=== PATIENT | male | born 1985 | race Caucasian/White ===

== ENCOUNTER 2023-10-14 02:48 | Inpatient (IN) | payer BC, SELFPAY ==
[2023-10-13 21:59] VITALS: BP 190/118
[2023-10-13 22:21] LABS: % Basophils 0.7 % (0-2); % Eosinophils 1.7 % (0-6); % Immature Granulocytes 0.4 % (0-0.5); % Lymphocytes 16.1 % (20.5-51.1); % Monocytes 9.9 % (1.7-9.3); % Neutrophils 71.2 % (42.2-75.2); Absolute Basophils 0.1 10^3/uL (0-0.2); Absolute Eosinophils 0.2 10^3/uL (0-0.7); Absolute Immature Granulocytes 0.1 10^3/uL (0-0.05); Absolute Lymphocytes 1.8 10^3/uL (1.2-3.4); Absolute Monocytes 1.1 10^3/uL (0.1-0.6); Absolute Neutrophils 8.1 10^3/uL (1.4-6.5); Hematocrit 47.1 % (39.0-52.0); Hemoglobin 16.9 g/dL (13.0-18.0); Mean Corp Hgb Conc. 35.9 g/dL (33.0-37.0); Mean Corpuscular Hgb 30.7 pg (27.0-31.0); Mean Corpuscular Volume 85.6 fL (80.0-94.0); Mean Platelet Volume 10.8 fL (7.4-10.4); Nucleated Red Blood Cells % 0 % (-); Platelet Count 229 10^3/uL (130-400); Red Cell Dist. Width 12.6 % (11.5-14.5); White Blood Cell Count 11.3 10^3/uL (4.8-10.8)
[2023-10-13 22:34] LABS: ALT (SGPT) 187 U/L (0-50); AST (SGOT) 158 U/L (17-59); Albumin 5.2 g/dl (3.5-5.0); Alkaline Phosphatase 78 U/L (38-126); Blood Urea Nitrogen 15 mg/dl (9-20); Calcium 10.5 mg/dl (8.4-10.2); Carbon Dioxide 28 mmol/L (22-30); Chloride 102 mmol/L (98-107); Glucose 113 mg/dl (70-99); Lipase 175 U/L (23-300); Sodium 139 mmol/L (135-145); Total Bilirubin 1.9 mg/dl (0.2-1.3); Total Protein 8.1 g/dl (6.3-8.2); eGFR > 60.00
[2023-10-13 22:41] LABS: Potassium 4.1 mmol/L (3.5-5.1)
[2023-10-13 22:45] LABS: Troponin I < 0.012 ng/ml
--- NOTE | 2023-10-13 23:52 | EDRN ---
the pain was all over abd. Pt had dry heaves for the last 3 hours after he vomited. Pt c/o dizziness.
[2023-10-13 23:58] VITALS: BMI 47.1
[2023-10-14] VITALS (16 sets, daily range): BP systolic 112–148; BP diastolic 68–88; BMI 46.6
--- NOTE | 2023-10-14 00:10 | ED.GENMED ---
History of Present Illness
General
Chief Complaint: Abdominal Pain
Source: patient
Exam Limitations: none
Time Seen by Provider: 10/13/23 23:46
History of Present Illness
History of Present Illness:
This is a 38 year old male that comes in with c/o upper abd pain. States that he thought this was heart burn and he tried Prilosec, Pepto and 2 Pepcid. States that his pain continued for the past 5 hours and it hurts when she breaths. States that it
felt like someone was stabbing him in his chest and stomach. States that he had dry heaves for the past 1/2 hour to 45 min. States that he was sweaty, nauseated and vomited. States that he was a little lightheaded. Patient was also due to his Third
Wegovy injection tomorrow. Denies any fever, chills, chest pain, diarrhea, headache, urinary burning.
Past History
Past History
ED Past Medical History: Asthma, GERD and Other (Renal calculus, ADHD); Negative HTN, Hypercholesterolemia or NIDDM
ED Past Surgical History: Orthopedic (Right knee surgery)
Social History
Tobacco: Non-smoker
Alcohol: Occasional
Personal:
Living: alone
Review of Systems
Review of Systems
All Other Systems: ROS reviewed and negative except as documented in HPI and ROS
Constitutional: Reports other (Sweating); Denies fever or chills
EENT: Reports no symptoms
Respiratory: Reports trouble breathing (Hurts with breathing)
Cardiac: Denies chest pain
ABD/GI: Reports abdominal pain, nausea and vomiting; Denies diarrhea
: Reports no symptoms; Denies dysuria, frequency or urgency
Musculoskeletal: Reports no symptoms
Skin: Reports no symptoms
Neurological: Reports other (Lightheaded); Denies dizzy or headache
Psychiatric: Reports no symptoms
Phy Exam
General Physical Exam
General Presentation: no apparent distress
General age: appears stated age
General Skin: warm and dry
General Habitus: obese
General Mental: alert
General Hydration: dry mucous membranes
ENT Exam
ENT Exam: TM's normal, pharynx normal and neck supple
Eye Exam
Eye Exam: EOMI
Cardiovascular Exam
Cardiovascular Exam: regular rate/rhythm and normal peripheral pulses
Pulmonary Exam
Pulmonary Exam: lungs clear, no respiratory distress, no rales, chest non tender, no crackles, no rhonchi, no wheezing and no cough
Gastrointestinal Exam
Gastrointestinal Exam: normal bowel sounds, soft, no organomegaly, no pulsatile mass, non distended, tender (Epigastric and RUQ tenderness with palpation) and other (Obese)
Musculoskeletal Exam
Musculoskeletal Exam: full ROM
Skin Exam
Skin Exam: normal color, warm/dry, no rash and no petechia
Psychiatric Exam
Psychiatric Exam: normal mood/affect
Course
Orders/Labs/Results
Orders:
Orders
10/13/23 21:52
Electrocardiogram (*1) Urgent
Reason for Study: Chest Pain
EKG- Treatment ONCE
10/13/23 22:03
Urinalysis Urgent
Date Specimen was Collected: 10/13/23
Time Specimen was Collected: 22:03
10/13/23 22:11
CMP [Comprehensive Metabolic Panel] Urgent
Complete Blood Count/With Diff Urgent
Direct Bilirubin Urgent
Comment: ADD ON
Lipase Urgent
Troponin I Urgent
10/13/23 23:58
Sucralfate Suspension [Carafate Suspension] 1 gm PO NOW STA
US Abdomen Complete/Upper Urgent
Comment:
Reason For Exam: Upper abd pain. Elevated liver enzymes.
10/14/23 00:15
0.9% Sodium Chloride 1000 ml [Nss] 1,000 ml IV BOLUS
10/14/23 01:10
D-Dimer Urgent
10/14/23 01:33
Add On- LAB Urgent
Tests Added?: Direct jessika
10/14/23 02:21
HYDROmorphone [Dilaudid] 1 mg IV NOW STA
Abnormal Lab Results
10/13/23 10/14/23
22:11 01:50
WBC 11.3 H 10^3/uL
(4.8-10.8)
MPV 10.8 H fL
(7.4-10.4)
Abs Immat Gran (auto) 0.1 H 10^3/uL
(0-0.05)
Absolute Neuts (auto) 8.1 H 10^3/uL
(1.4-6.5)
Absolute Monos (auto) 1.1 H 10^3/uL
(0.1-0.6)
Lymphocytes % 16.1 L %
(20.5-51.1)
Monocytes % 9.9 H %
(1.7-9.3)
Glucose 113 H mg/dl
(70-99)
Calcium 10.5 H mg/dl
(8.4-10.2)
Total Bilirubin 1.9 H mg/dl
(0.2-1.3)
Direct Bilirubin 1.1 H mg/dl
(0.0-0.4)
AST 158 H U/L
(17-59)
ALT 187 H U/L
(0-50)
Albumin 5.2 H g/dl
(3.5-5.0)
Urine Ketones 3+ A
(Negative)
10/13/23 22:11
10/13/23 22:11
WBC very slightly elevated. Glucose nonfasting. Calcium slightly elevated. Total jessika elevation. AST/ALT elevation. (last AST was 50 and ALT 90 according to patient), Troponin <0.012, Lipase normal at 175,. Direct jessika elevated at 1.1, Urine negative
for infection. D-dimer 0.37
Vital Signs
Initial and Last Documented VS:
Initial Vital Signs
Temp Pulse Resp BP Pulse Ox
98.3 F 80 22 190/118 97
10/13/23 21:59 10/13/23 21:59 10/13/23 21:59 10/13/23 21:59 10/13/23 21:59
Last Documented Vital Signs
Temp Pulse Resp BP Pulse Ox
98.3 F 84 16 144/88 96
10/13/23 21:59 10/14/23 00:00 10/14/23 00:00 10/14/23 00:01 10/14/23 00:00
MDM/Problems Addressed
Differential Diagnosis Includes:
Gastritis, Gallbladder disease,
MDM/Problems Addressed:
This is a 38 year old male that comes in with c/o upper abd pain. States that it felt like heart but over the past 5 hours the pain has gotten worse.
Will get labs and US. Medicate for pain.
Back into see patient. Explained that his liver enzymes are elevated and that his US shows that he has gallstones. It is hard to exclude an impacted stone. There is mild gallbladder wall thickening. Patient states that at this time his pain is
coming back. Will admit patient for further evaluation. Hospitalist notified.
Chronic conditions affecting care:
Obese
Acute Exacerbation and/or Progression of Chronic Illness:
Obese
*Radiology
Radiology exam reviewed: radiology read reviewed (US night hawk-Body habitus decreases characterization. Sludge and nonmobile gallstones which may be related to the sludge however difficult to exclude impacted stone. Mild gallbladder wall thickening
at 4.3mm. No sonographic Jenny's sign (but the patient received pain medication). No pericholecystic), all reviewed NAD by ED Provider (US cont- fluid or other signs of chohlecystitis. Common bile duct is unremarkable. Constellation findings are non
specific for acute cholecystitis, consider further workup or followup ultrasound especially if symptoms persist or progress. Mild fatty liver. Kidneys are possibly slightly heterogeneous) and other (US con-/Hyperechoic however, may be technical
related to body habitus, no stones or obstrucation. Please correlate with urinalysis. Remainder of the visualized upper abd is unremarkable. )
*Pulse Oximetry
Patient hypoxic: no
*EKG
Interpreted by ED Provider?: Yes
Heart Rate: 87
Rate: normal
Rhythm: sinus
[place]: normal axis
Interval: normal interval
QRS Pattern: normal QRS
Ischemia: no ischemia
*Blend Plant Operator Interpretation
Rate: normal
Heart Rate: 83
Rhythm: sinus
*Critical Care Note
Total Time (30-74mins, 75-104mins- exclusive of procedures): Not Applicable
ED Attending Note
-
Portions of this chart may have been created with voice recognition software.� Occasional wrong word or��sound alike� substitutions may have occurred due to the inherent limitations of voice recognition software.
Discharge Plan
Departure
Patient Disposition: Admit
Date of Disposition: 10/14/23
Time of Disposition: 02:25
Admit to: Med/Surg
Presentation/result/management discussed w/ accepting MD/DO: Hospitalist
Patient with high blood pressure during this ER visit?: Yes
Condition: Good
Covid-19: Not Applicable
Discharge Problem:
Acute upper abdominal pain, Elevated liver enzymes
Prescriptions:
No Action
multivitamin Tablet
1 tab PO DAILY
Zyrtec
10 mg PO DAILY
meloxicam 7.5 mg Tablet
7.5 mg PO BID
Ozempic 0.25 mg or 0.5 mg(2 mg/1.5 mL) Pen Injector
0.25 mg SC QWEEK
Rx Instructions:
for 4 weeks
Interventions
Interventions:
*Risk Screen - Suicide Last Done: 10/13/23 21:59
*General Assessment Last Done: 10/13/23 23:49
*Neglect/Abuse Screening Last Done: 10/13/23 21:59
ED- Fall Risk Assessment Last Done: 10/13/23 23:49
*ED COVID-19 Vaccine History Last Done: 10/13/23 23:49
UR-Lsxppi-Actbrfyktz Assessment Last Done: 10/13/23 23:49
Discharge Date and Time
Print Language: CANADIAN
[2023-10-14] MEDS: CARAFATE SUSPENSION 1 GM PO (00:11)
[2023-10-14] MEDS: NSS 1000 IV ×4 (01:21→22:17)
[2023-10-14 02:07] LABS: Urine Albumin Negative (Neg - Trace); Urine Bilirubin Negative (Negative); Urine Character Clear (Clear); Urine Color Yellow; Urine Glucose Negative (Negative); Urine Ketone 3+ (Negative); Urine Leukocyte Negative (Negative); Urine Nitrite Negative (Negative); Urine Occult Blood Negative (Negative); Urine Urobilinogen Negative (Neg - 1+)
[2023-10-14 02:12] LABS: Direct Bilirubin 1.1 mg/dl (0.0-0.4)
[2023-10-14 02:22] LABS: D-Dimer 0.37 ug/mlFEU (0.00-0.50)
--- NOTE | 2023-10-14 02:31 | HPS.HSE ---
Family Physician
-
Family Physician: Umair Carrillo
Chief Complaint
-
Abd Pain
History of Present Illness
Patient is a 38y M with PMH significant for obesity and DM-II who presents to ED complaining of abdominal pain. Patient states that he developed epigastric abdominal pain around 4 PM this afternoon. He took Pepcid, Prilosec and Pepto Bismol at
home with no improvement in symptoms over several hours. He had N/V and ultimately dry heaves. Patient states that pain radiates to the back and he has 'aching' in the shoulders. Pain is worse with deep breathing. He states that he was pacing
around his house and was unable to get comfortable.
He denies any fevers / chills. No diarrhea.
Patient was recently started on Wegovy and has had 2 doses of the lowest dose thus far - 3rd dose is due tomorrow.
Patient reports history of similar episode 1 year ago. He as treated in the ED for GERD / heartburn and his symptoms improved.
He notes fairly frequent episodes of heartburn, but symptoms typically resolved with Pepcid.
Medical History
Past Medical History
Past Medical History: Reports Other
Additional Past Medical History:
DM-II
Obesity
Past Surgical History: Reports Other
Additional Past Surgical History:
Gynecomastia Surgery
Right Knee Surgery
Social History
Tobacco: Non-smoker
Alcohol: Occasional
Drug: None
Family History
Family History: Not pertinent
Allergies / Home Medications
Allergies reflects when Allergies were last updated in [employer].
Home Medications with original date entered in [employer]
Allergy/Medication List:
Allergies
Allergy/AdvReac Type Severity Reaction Status Date / Time
No Known Drug Allergies Allergy Unknown Verified 10/13/23 22:02
Home Medications
Zyrtec 10 mg PO DAILY 08/03/22
multivitamin 1 tab PO DAILY 08/03/22
meloxicam 7.5 mg tablet 7.5 mg PO BID 10/14/23
semaglutide 0.25 mg or 0.5 mg (2 mg/1.5 mL) subcutaneous pen injector (Ozempic) 0.25 mg SC QWEEK 10/14/23
Review of Systems
-
History Source: Patient
A 12 point ROS was completed and negative except as noted: Yes
Constitutional: Denies Fever or Chills
Respiratory: Reports Trouble Breathing (Patient notes increase in pain with breathing.); Denies Cough
Cardiac: Denies Chest Pain or Palpitations
Abdomen/GI: Reports Abdominal Pain, Nausea and Vomiting; Denies Diarrhea or Constipated
: Reports Flank Pain
Musculoskeletal: Denies Joint Pain or Edema
Neurological: Denies Dizzy or Headache
Psych: Denies Depression or Anxiety
Physical Exam
Vital Signs
Vital Signs
Temp Pulse Resp BP Pulse Ox
98.3 F 84 16 144/88 96
10/13/23 21:59 10/14/23 00:00 10/14/23 00:00 10/14/23 00:01 10/14/23 00:00
Physical Exam
General: Other (38y obese male in moderate distress due to abdominal / back pain.)
HEENT: Moist mucous membranes and Other (Thick neck)
Respiratory: Clear and Other (pain with deep inspiration.); No Wheezes, Rales or Rhonchi
Cardiac: S1/S2 and Regular Rhythm; No Murmur
GI: Other (Obese, marked tenderness in the RUQ. Pos BS.)
Genito-urinary: Other (Pos R CVAT)
Musculoskeletal: No Clubbing, No Cyanosis and No Edema
Neuro: AO x 3
Laboratory Results
-
10/13/23 22:11
10/13/23 22:11
Laboratory Results
Total Bilirubin 1.9 mg/dl (0.2-1.3) H 10/13/23 22:11
AST 158 U/L (17-59) H 10/13/23 22:11
ALT 187 U/L (0-50) H 10/13/23 22:11
Alkaline Phosphatase 78 U/L (38-126) 10/13/23 22:11
Troponin I < 0.012 ng/ml 10/13/23 22:11
Lipase 175 U/L (23-300) 10/13/23 22:11
Impression/Plan
-
A/P: Patient is a 38y M with PMH significant for obesity and DM-II who presents to ED complaining of abdominal pain.
Cholelithiasis +/- Acute Calculous Cholecystitis
- Admit for further evaluation and treatment.
- Colicky pain with radiation to the R flank / shoulder.
- US shows stones and mild wall thickening. Significant RUQ tenderness on exam.
- Suspect acute cholecystitis.
- IV abx with Zosyn for now.
- Supportive care with IVFs, pain control, antiemetics, etc.
- Surgery evaluation for possible cholecystectomy.
DM-II
- Stable. Only current med is newly started Wegovy which we will hold.
- Certainly Wegovy could contribute to GI symptoms / LFT abnormalities; however, patient had similar episode one year ago - well prior to beginning this med.
- Follow glucose and cover with SSI as needed.
- Update A1C.
Morbid Obesity due to excess calories
- Affects all aspects of care including increased risk for GB disease.
- Encourage healthy diet and increased exercise with goal of weight loss.
DVT Prophylaxis: SCDs
Code Status: Full
[2023-10-14] MEDS: DILAUDID 1 MG IV (02:33)
[2023-10-14] MEDS: ZOSYN 50 IV ×3 (04:34→22:13)
[2023-10-14 06:15] LABS: Hematocrit 41.2 % (39.0-52.0); Hemoglobin 14.9 g/dL (13.0-18.0); Mean Corp Hgb Conc. 36.2 g/dL (33.0-37.0); Mean Corpuscular Hgb 30.1 pg (27.0-31.0); Mean Corpuscular Volume 83.2 fL (80.0-94.0); Mean Platelet Volume 11.2 fL (7.4-10.4); Platelet Count 195 10^3/uL (130-400); Red Blood Cell Count 4.95 10^6/uL (4.70-6.10); Red Cell Dist. Width 12.9 % (11.5-14.5); White Blood Cell Count 9.8 10^3/uL (4.8-10.8)
[2023-10-14 06:33] LABS: Blood Urea Nitrogen 11 mg/dl (9-20); Calcium 9.4 mg/dl (8.4-10.2); Carbon Dioxide 23 mmol/L (22-30); Chloride 105 mmol/L (98-107); Estimated Creatinine Clearance > 125 ml/min; Glucose 147 mg/dl (70-99); Potassium 4.2 mmol/L (3.5-5.1); Sodium 138 mmol/L (135-145); eGFR > 60.00
[2023-10-14 08:08] LABS: Glucose - Point of Care 128 mg/dl (70-99)
[2023-10-14] MEDS: NSS (PRESERVATIVE FREE) 10 ML IV (08:13)
[2023-10-14] MEDS: NOVOLOG FLEXPEN-LOW RESISTANCE SC ×3 (08:13→17:15)
[2023-10-14] MEDS: PROTONIX IV 40 MG IV (08:14)
[2023-10-14 08:51] LABS: Glycohemoglobin (HgbA1c) 5.5 % (4.0-5.6)
--- NOTE | 2023-10-14 10:11 | CON.GS ---
Consultation
-
Date/Time Consultation Requested: 10/14/2023 7 AM
Date/Time Consultation Performed: 10/14/2023 9 AM
Requesting Provider: Dr. SILVER
Performing Provider: Dr. Hamilton
Reason for Consultation: Acute cholecystitis
Medical History
-
Chief Complaint: Right upper quadrant pain
History of Present Illness:
This is a 38-year-old male with a history significant for morbid obesity (BMI 57), diabetes who presents with a 1 day history of severe right upper quadrant abdominal pain after eating fatty meals similar to an episode he had roughly a year ago. Of
note he has started Wegovy roughly the 4 weeks ago. He denies any prior abdominal surgical history. The patient denies Fever, Chest Pain, Shortness Of Breath, Nausea, Vomiting, changes in urinary and bowel habits, unintentional weight loss,
jaundice, icterus, acolic stools.
Past Medical History
Past Medical History: Other (Obesity, diabetes)
Past Surgical History: Reviewed & Noncontributory
Social History
Tobacco: Non-Smoker
Alcohol: Occasional
Drug: None
Personal: Single
Family History
Family History: Reviewed & Not Pertinent
Allergies / Home Medications
Allergy/AdvReac Type Severity Reaction Status Date / Time
No Known Drug Allergies Allergy Unknown Verified 10/13/23 22:02
�Medication �Instructions �Recorded �Confirmed �Type
Zyrtec 10 mg PO DAILY 08/03/22 10/14/23 History
multivitamin 1 tab PO DAILY 08/03/22 10/14/23 History
meloxicam 7.5 mg tablet 7.5 mg PO BID 10/14/23 10/14/23 History
semaglutide 0.25 mg or 0.5 mg (2 0.25 mg SC QWEEK 10/14/23 10/14/23 History
mg/1.5 mL) subcutaneous pen
injector (Ozempic)
Review of Systems
-
All other systems: Negative unless noted
A 10 point review of systems was completed, and was negative except as per HPI.
Physical Exam
Vital Signs
Temp Pulse Resp BP Pulse Ox
97.8 F 77 16 116/73 100
10/14/23 07:44 10/14/23 07:44 10/14/23 07:44 10/14/23 07:44 10/14/23 07:44
10/13/23 10/14/23 10/15/23
06:59 06:59 06:59
Actual Weight 168.963 kg
Body Mass Index (BMI) 46.6
Lab Results
10/14/23 05:38
10/14/23 05:38
WBC 9.8 10^3/uL (4.8-10.8) 10/14/23 05:38
Hgb 14.9 g/dL (13.0-18.0) 10/14/23 05:38
Hct 41.2 % (39.0-52.0) 10/14/23 05:38
Plt Count 195 10^3/uL (130-400) 10/14/23 05:38
Abs Immat Gran (auto) 0.1 10^3/uL (0-0.05) H 10/13/23 22:11
Neutrophils % 71.2 % (42.2-75.2) 10/13/23 22:11
Physical Exam
General: Well Developed
HEENT: Normocephalic
Respiratory: Non Labored Respirations
GI: Soft, Non Tender, Non Distended and Obese
Data Reviewed
-
Ultrasound: Image Personally Visualized and interpreted, Report Reviewed by me and Discussed with Patient
Total Time Spent with Patient (in minutes): 30
Assessment / Plan
-
This is a 38-year-old male who presents with a 1 day history of sharp postprandial right upper quadrant abdominal pain after eating fatty meals. Imaging with cholelithiasis but no stigmata of cholecystitis. However, given his elevated LFTs and
history I have a strong suspicion for acute cholecystitis.
Will plan for a laparoscopic cholecystectomy and cholangiogram today. May consider robotic approach if available.
Risks/Benefits/Alternatives, expected postoperative course and possible complications (bleeding, infection, injury to surrounding structures, acute/chronic pain) discussed at length. Patient wishes to proceed with surgery. All questions answered.
Consent obtained.
I spent roughly 60 minutes in total for the care of this patient today including direct patient care and counseling, reviewing labs, imaging, coordination of care, as well as documentation.
[2023-10-14 11:45] LABS: Glucose - Point of Care 97 mg/dl (70-99)
--- NOTE | 2023-10-14 11:57 | CM ---
CM met with pt at bedside
38y M admitted from ER complaining of abdominal pain
Pt reports he lives alone in a 2 story home
Independent, works FT as a teacher, drives
DME - none
SNF/HH - no hx
Receiving out-pt PT at [facility]
Has ride at d/c
PCP - Dr Harris Naylor
Pharm - [facility]
CM will follow for d/c needs
Plan - anticipate home no needs
--- NOTE | 2023-10-14 12:38 | W.PN.HOSP.TC ---
Today's Communication/Plan
-
IVF
Pain control
post op orders per GS
Assessment / Plan
Assessment / Plan
A/P: Patient is a 38y M with PMH significant for obesity and DM-II who presents to ED complaining of abdominal pain.
Acute Calculous Cholecystitis
- Colicky pain with radiation to the R flank / shoulder.
- US shows stones and mild wall thickening. Significant RUQ tenderness on exam.
- Suspect acute cholecystitis.
- IV abx with Zosyn for now.
- Supportive care with IVFs, pain control, antiemetics, etc.
- Surgery evaluation for cholecystectomy later today.
DM-II
- Stable. Only current med is newly started Wegovy which we will hold.
- Certainly Wegovy could contribute to GI symptoms / LFT abnormalities; however, patient had similar episode one year ago - well prior to beginning this med.
- Follow glucose and cover with SSI as needed.
- Update A1C.
Morbid Obesity due to excess calories
- Affects all aspects of care including increased risk for GB disease.
- Encourage healthy diet and increased exercise with goal of weight loss.
DVT Prophylaxis: SCDs
Code Status: Full
Anticipated Discharge: Within 24 hours
Subjective/Interval History
-
Date of Service: October 14, 2023
states of abd pain -improved with pain meds
Objective Data
-
Labs:
Laboratory Results
10/14/23
05:38
WBC 9.8
Hgb 14.9
Hct 41.2
Plt Count 195
Sodium 138
Potassium 4.2
Chloride 105
Carbon Dioxide 23
BUN 11
Creatinine 0.8
Glucose 147 H
Calcium 9.4
Vital Signs:
Vital Signs
Temp Pulse Resp BP Pulse Ox
97.8 F 77 16 116/73 100
10/14/23 07:44 10/14/23 07:44 10/14/23 07:44 10/14/23 07:44 10/14/23 07:44
I&O
10/13/23 10/14/23 10/15/23
06:59 06:59 06:59
Output Total 500 / 500
Balance -500 / -500
Physical Exam
-
General: Well Developed, No Apparent Distress and Morbidly Obese
HEENT: Normocephalic, Atraumatic and Moist Mucous Membranes
Respiratory: Clear to Auscultation
Cardiac: Regular Rhythm and S1/S2; Negative Murmur, Rub or Gallop
GI: Soft, Nondistended, Normal Bowel Sounds and Tender; Negative Organomegaly
Rectal: Deferred by Provider
Musculoskeletal: No Clubbing, No Cyanosis and No Edema
Skin: Negative Rash
Neuro: Awake, Alert, Oriented, AO x 3, No Motor Deficits and Nonfocal/Grossly Intact
Psych: Calm
[2023-10-14] MEDS: ZOSYN IV (15:30)
--- NOTE | 2023-10-14 16:36 | W.SUR.PREOP ---
Pre-Operative Surgical Note
-
I have examined this patient prior to the performance of the scheduled procedure.
The patient's condition is unchanged from the time of the current History and
Physical and the patient is able to undergo the scheduled procedure.
--- NOTE | 2023-10-14 16:36 | W.IMMPOSTOP ---
Surgical Immed Post Op Note
-
Primary Surgeon: Brennen Hamilton MD
Assisting Surgeon: None
Pre-op Diagnosis: Acute cholecystitis
Post-op Diagnosis: Same
Procedure Performed: Robotic assisted laparoscopic cholecystectomy with cholangiogram
Anesthesia Type: General
Specimen / Cultures: Gallbladder and contents
Estimated Blood Loss: 29 cc
Complications: None
Operative Findings: Acutely inflamed gallbladder, distended. This was decompressed using a suction needle. The hepatocystic triangle was quite inflamed so we performed a top-down cholecystectomy. Unfortunately rent was made in the posterior side
of the gallbladder causing some spillage of bile and stones this was suctioned up and all visible stones were retrieved. A cholangiogram was performed through this rent confirming our anatomy and it did not show any distal filling defects. We
continued dissecting more proximally for few more centimeters as we saw on cholangiogram that we had room to get additional length and onto the true cystic duct. This was ligated with 2 Weck clips.
POST OP PLAN:
Imaging: None
Labs: Routine AM
Diet: Clears, will advance diet as tolerated in the morning
Analgesia: Tylenol 650mg q6 Mile, Ailyn 5mg q6 PRN, Dilaudid 0.5mg q2h PRN
Neuro/vascular checks: q4h
AC/AP: Hold Therapeutic AC, Ok for DVT PPx
Activity: Ad Mckenzie
Wound/Incisions/Drains: Routine
Abx: Continue 4 days worth of antibiotics.
Dispo: RNF, anticipate discharge home tomorrow.
[2023-10-14 17:15] LABS: Glucose - Point of Care 128 mg/dl (70-99)
[2023-10-14] MEDS: DILAUDID 0.5 MG IV ×2 (17:22→22:22)
[2023-10-14 18:14] LABS: Glucose - Point of Care 147 mg/dl (70-99)
[2023-10-14 21:32] LABS: Glucose - Point of Care 145 mg/dl (70-99)
[2023-10-15] MEDS: ZOSYN 50 IV ×4 (04:51→21:56)
[2023-10-15 06:10] LABS: % Basophils 0.2 % (0-2); % Immature Granulocytes 0.4 % (0-0.5); % Lymphocytes 10.9 % (20.5-51.1); % Monocytes 8.2 % (1.7-9.3); % Neutrophils 80.3 % (42.2-75.2); Absolute Lymphocytes 1.2 10^3/uL (1.2-3.4); Absolute Monocytes 0.9 10^3/uL (0.1-0.6); Absolute Neutrophils 8.7 10^3/uL (1.4-6.5); Hematocrit 41.3 % (39.0-52.0); Hemoglobin 14.4 g/dL (13.0-18.0); Mean Corp Hgb Conc. 34.9 g/dL (33.0-37.0); Mean Corpuscular Hgb 30.6 pg (27.0-31.0); Mean Corpuscular Volume 87.7 fL (80.0-94.0); Mean Platelet Volume 11.1 fL (7.4-10.4); Nucleated Red Blood Cells % 0 % (-); Platelet Count 193 10^3/uL (130-400); Red Blood Cell Count 4.71 10^6/uL (4.70-6.10); White Blood Cell Count 10.9 10^3/uL (4.8-10.8)
[2023-10-15 06:27] LABS: ALT (SGPT) 361 U/L (0-50); AST (SGOT) 161 U/L (17-59); Albumin 4.1 g/dl (3.5-5.0); Alkaline Phosphatase 74 U/L (38-126); Blood Urea Nitrogen 6 mg/dl (9-20); Calcium 9.4 mg/dl (8.4-10.2); Carbon Dioxide 25 mmol/L (22-30); Chloride 105 mmol/L (98-107); Estimated Creatinine Clearance > 125 ml/min; Glucose 128 mg/dl (70-99); Potassium 4.1 mmol/L (3.5-5.1); Sodium 138 mmol/L (135-145); Total Bilirubin 1.4 mg/dl (0.2-1.3); Total Protein 6.5 g/dl (6.3-8.2); eGFR > 60.00
[2023-10-15 07:00] VITALS: BP 125/80
--- NOTE | 2023-10-15 07:37 | W.PN.GS2 ---
Today's Communication / Plan
-
Regular diet
Dispo planning
Assessment / Plan
-
This is a 38-year-old male postoperative day 1 from a robotic cholecystectomy and cholangiogram. Doing well expected postoperative course
Okay for regular diet.
Continue antibiotics
Will reevaluate later today, possible discharge tonight versus tomorrow pending clinical course.
Subjective Data
-
Date of Service: October 15, 2023
Interval Events:
No acute events overnight. Slept well. Uncomfortable but pain controlled. Denies Nausea/Vomiting, +bowel function. Tolerating diet.
Objective Data
-
Intake and Output
10/14/23 10/15/23 10/16/23
06:59 06:59 06:59
Intake Total 1680 / 1680
Output Total 500 / 500 1949
Balance -500 / -500 -270 / -270
Intake:
Oral fluids 480 / 480
IV fluids (Total) 1100 / 1100
normosol 100 / 100
IV piggybacks 100 / 100
Output:
Emesis 500 / 500
Urine, Voided 1949
Other:
Number of approximated MODERATE 1
amounts of urine
Number of approximated LARGE 1
amounts of urine
Number of immeasurable emeses? 1
Vital Signs
Temp Pulse Resp BP Pulse Ox
98.1 F 89 17 128/77 92
10/14/23 23:38 10/14/23 23:38 10/14/23 23:38 10/14/23 23:38 10/14/23 23:38
Lab Results
10/15/23 05:44
10/15/23 05:44
Calcium 9.4 mg/dl (8.4-10.2) 10/15/23 05:44
Total Bilirubin 1.4 mg/dl (0.2-1.3) H 10/15/23 05:44
Direct Bilirubin 1.1 mg/dl (0.0-0.4) H 10/13/23 22:11
AST 161 U/L (17-59) H 10/15/23 05:44
ALT 361 U/L (0-50) H 10/15/23 05:44
Alkaline Phosphatase 74 U/L (38-126) 10/15/23 05:44
Total Protein 6.5 g/dl (6.3-8.2) 10/15/23 05:44
Albumin 4.1 g/dl (3.5-5.0) 10/15/23 05:44
Physical Exam
-
GENERAL/NEURO: Awake, Alert, looks uncomfortable
CHEST: Unlabored breathing on RA
ABDOMEN: Soft, appropriately tender, Non-Distended, incisions clean dry and intact. Obese
[2023-10-15] MEDS: DILAUDID 0.5 MG IV ×3 (08:02→21:57)
[2023-10-15] MEDS: NSS (PRESERVATIVE FREE) 10 ML IV (08:04)
[2023-10-15] MEDS: NOVOLOG FLEXPEN-LOW RESISTANCE SC ×2 (08:04→17:40)
[2023-10-15 08:05] LABS: Glucose - Point of Care 137 mg/dl (70-99)
[2023-10-15] MEDS: PROTONIX IV 40 MG IV (08:05)
[2023-10-15 11:54] LABS: Glucose - Point of Care 165 mg/dl (70-99)
[2023-10-15] MEDS: NOVOLOG FLEXPEN-LOW RESISTANCE 1 UNITS SC (12:46)
--- NOTE | 2023-10-15 12:51 | CM ---
Case management following for d/c planning
Chart reviewed. Met with pt
Advancing diet
Pain management
Plan - anticipate home no needs when medically stable
[2023-10-15 15:00] VITALS: BP 116/71
[2023-10-15 16:39] LABS: Glucose - Point of Care 138 mg/dl (70-99)
[2023-10-15 21:14] LABS: Glucose - Point of Care 104 mg/dl (70-99)
[2023-10-15] MEDS: FLUSH (NSS) 2 FLUSH IV (21:57)
[2023-10-15 23:50] VITALS: BP 131/75
[2023-10-16] MEDS: ZOSYN 50 IV ×2 (04:55→10:53)
[2023-10-16] MEDS: FLUSH (NSS) 2 FLUSH IV (04:56)
[2023-10-16] MEDS: DILAUDID 0.5 MG IV ×2 (06:24→11:38)
[2023-10-16] MEDS: FLUSH (NSS) 1 FLUSH IV (06:25)
[2023-10-16 06:32] LABS: % Basophils 0.7 % (0-2); % Eosinophils 1.9 % (0-6); % Immature Granulocytes 0.5 % (0-0.5); % Lymphocytes 30.2 % (20.5-51.1); % Monocytes 11.1 % (1.7-9.3); % Neutrophils 55.6 % (42.2-75.2); Absolute Basophils 0.1 10^3/uL (0-0.2); Absolute Eosinophils 0.2 10^3/uL (0-0.7); Absolute Lymphocytes 2.7 10^3/uL (1.2-3.4); Absolute Neutrophils 4.9 10^3/uL (1.4-6.5); Hematocrit 41.6 % (39.0-52.0); Hemoglobin 14.5 g/dL (13.0-18.0); Mean Corp Hgb Conc. 34.9 g/dL (33.0-37.0); Mean Corpuscular Hgb 30.1 pg (27.0-31.0); Mean Corpuscular Volume 86.5 fL (80.0-94.0); Mean Platelet Volume 10.8 fL (7.4-10.4); Nucleated Red Blood Cells % 0 % (-); Platelet Count 188 10^3/uL (130-400); Red Blood Cell Count 4.81 10^6/uL (4.70-6.10); Red Cell Dist. Width 13.2 % (11.5-14.5); White Blood Cell Count 8.8 10^3/uL (4.8-10.8)
[2023-10-16 07:27] LABS: ALT (SGPT) 282 U/L (0-50); AST (SGOT) 78 U/L (17-59); Alkaline Phosphatase 68 U/L (38-126); Blood Urea Nitrogen 11 mg/dl (9-20); Calcium 8.9 mg/dl (8.4-10.2); Carbon Dioxide 27 mmol/L (22-30); Chloride 105 mmol/L (98-107); Estimated Creatinine Clearance > 125 ml/min; Glucose 112 mg/dl (70-99); Potassium 3.8 mmol/L (3.5-5.1); Sodium 139 mmol/L (135-145); Total Protein 6.4 g/dl (6.3-8.2); eGFR > 60.00
[2023-10-16] MEDS: PROTONIX 40 MG PO (07:29)
[2023-10-16 08:00] VITALS: BP 146/90
--- NOTE | 2023-10-16 08:18 | W.PN.GS2 ---
Addendum entered and electronically signed by Brennen Hamilton MD 10/16/23 08:25:
Discharge instructions updated.
Pain meds sent to pharmacy.
Patient to follow-up with me in 2 to 3 weeks.
Original Note:
Today's Communication / Plan
-
Dispo planning
Assessment / Plan
-
This is a 38-year-old male postoperative day 2 from a robotic cholecystectomy and cholangiogram. Doing well expected postoperative course
Will plan to discharge later today, no antibiotics.
Time Spent
Total Time Spent with Patient (in minutes): 20
Subjective Data
-
Date of Service: October 16, 2023
Interval Events:
No acute events overnight. Slept well. Still having some pain but it is controlled. It is mostly richardson-incisional and worse with flexion of the abdomen. Denies Nausea/Vomiting, +bowel function. Tolerating diet.
Objective Data
-
Intake and Output
10/15/23 10/16/23 10/17/23
06:59 06:59 06:59
Intake Total 1680 / 1680 820 / 820
Output Total 1949 / 1950
Balance -270 / -270 820 / 820
Intake:
Oral fluids 480 / 480 720 / 720
IV fluids (Total) 1100 / 1100
normosol 100 / 100
IV piggybacks 100 / 100 100 / 100
Output:
Urine, Voided 1949
Other:
Number of approximated MODERATE 1
amounts of urine
Number of approximated LARGE 1
amounts of urine
Vital Signs
Temp Pulse Resp BP Pulse Ox
97.7 F 78 18 146/90 97
10/16/23 08:00 10/16/23 08:00 10/16/23 08:00 10/16/23 08:00 10/16/23 08:00
Lab Results
10/16/23 05:52
10/16/23 05:52
Calcium 8.9 mg/dl (8.4-10.2) 10/16/23 05:52
Total Bilirubin 1.0 mg/dl (0.2-1.3) 10/16/23 05:52
Direct Bilirubin 1.1 mg/dl (0.0-0.4) H 10/13/23 22:11
AST 78 U/L (17-59) H 10/16/23 05:52
ALT 282 U/L (0-50) H 10/16/23 05:52
Alkaline Phosphatase 68 U/L (38-126) 10/16/23 05:52
Total Protein 6.4 g/dl (6.3-8.2) 10/16/23 05:52
Albumin 4.0 g/dl (3.5-5.0) 10/16/23 05:52
Physical Exam
-
GENERAL/NEURO: Awake, Alert, no distress
CHEST: Unlabored breathing on RA
ABDOMEN: Soft, Non-Tender, Non-Distended, incisions clean dry and intact though there is some richardson-incisional hematoma and bruising around his midline port.
[2023-10-16 08:34] LABS: Glucose - Point of Care 124 mg/dl (70-99)
[2023-10-16] MEDS: NOVOLOG FLEXPEN-LOW RESISTANCE SC ×2 (08:49→11:40)
--- NOTE | 2023-10-16 10:55 | W.PN.HOSP.TC ---
Today's Communication/Plan
-
Antibiotic
General surgery recs
Assessment / Plan
Assessment / Plan
A/P: Patient is a 38y M with PMH significant for obesity and DM-II who presents to ED complaining of abdominal pain.
Acute Calculous Cholecystitis
- Colicky pain with radiation to the R flank / shoulder.
- US shows stones and mild wall thickening. Significant RUQ tenderness on exam.
- IV abx with Zosyn for now
- Supportive care with IVFs, pain control, antiemetics, etc.
- Status post laparoscopic cholecystectomy
DM-II
- Stable. Only current med is newly started Wegovy which we will hold.
- Follow glucose and cover with SSI as needed.
- Update A1C at 5.5
Morbid Obesity due to excess calories
- Affects all aspects of care including increased risk for GB disease.
- Encourage healthy diet and increased exercise with goal of weight loss.
- On wegovy-recommended to hold till OP GS and PCP eval. Pt verbalized understanding.
DVT Prophylaxis: SCDs
Code Status: Full
Anticipated Discharge: Within 24 hours
Subjective/Interval History
-
Date of Service: October 15, 2023
Patient was seen and examined 10/15/2023. Late addendum.
mild pain at incisional site
Objective Data
-
Labs:
Laboratory Results
10/16/23
05:52
WBC 8.8
Hgb 14.5
Hct 41.6
Plt Count 188
Sodium 139
Potassium 3.8
Chloride 105
Carbon Dioxide 27
BUN 11
Creatinine 0.9
Glucose 112 H
Calcium 8.9
Total Bilirubin 1.0
AST 78 H
ALT 282 H
Alkaline Phosphatase 68
Vital Signs:
Vital Signs
Temp Pulse Resp BP Pulse Ox
97.7 F 78 18 146/90 97
10/16/23 08:00 10/16/23 08:00 10/16/23 08:00 10/16/23 08:00 10/16/23 08:00
I&O
10/15/23 10/16/23 10/17/23
06:59 06:59 06:59
Intake Total 1680 / 1680 820 / 820
Output Total 1949 / 1949
Balance -270 / -270 820 / 820
Physical Exam
-
General: Well Developed, No Apparent Distress and Morbidly Obese
HEENT: Normocephalic, Atraumatic and Moist Mucous Membranes
Respiratory: Clear to Auscultation
Cardiac: Regular Rhythm and S1/S2; Negative Murmur, Rub or Gallop
GI: Soft, Nondistended, Normal Bowel Sounds, Tender (at incision site. ) and Other (insicion site noted without erythema. ); Negative Organomegaly
Rectal: Deferred by Provider
Musculoskeletal: No Clubbing, No Cyanosis and No Edema
Skin: Negative Rash
Neuro: Awake, Alert, Oriented, AO x 3, No Motor Deficits and Nonfocal/Grossly Intact
Psych: Calm
--- NOTE | 2023-10-16 10:59 | W.PN.HOSP.TC ---
Today's Communication/Plan
-
DC home
Outpatient general surgery follow-up
Assessment / Plan
Assessment / Plan
A/P: Patient is a 38y M with PMH significant for obesity and DM-II who presents to ED complaining of abdominal pain.
Acute Calculous Cholecystitis
- Colicky pain with radiation to the R flank / shoulder.
- US shows stones and mild wall thickening. Significant RUQ tenderness on exam.
- IV abx with Zosyn for now and plan to discontinue further antibiotics per general surgery.
- DC further fluids. Tolerating diet.
- Status post laparoscopic cholecystectomy
- Outpatient general surgery postop follow-up.
DM-II
- Stable. Only current med is newly started Wegovy which we will hold.
- Follow glucose and cover with SSI as needed.
- Update A1C at 5.5
Morbid Obesity due to excess calories
- Affects all aspects of care including increased risk for GB disease.
- Encourage healthy diet and increased exercise with goal of weight loss.
- On wegovy-recommended to hold till OP GS and PCP aneta. Pt verbalized understanding.
DVT Prophylaxis: SCDs
Code Status: Full
Dispo DC home later today
More than 30 minutes spent in discharge including
Final examination of the patient
Summarizing hospital stay
Instructions for continuing care to all relevant caregivers
Preparation of discharge records, prescriptions, and referral forms
Total time spent (in minutes): 58
Anticipated Discharge: Today
Subjective/Interval History
-
Date of Service: October 16, 2023
Complaining of mild pain in the incision site
Tolerating diet
Had a bowel movement earlier today
Objective Data
-
Labs:
Laboratory Results
10/16/23
05:52
WBC 8.8
Hgb 14.5
Hct 41.6
Plt Count 188
Sodium 139
Potassium 3.8
Chloride 105
Carbon Dioxide 27
BUN 11
Creatinine 0.9
Glucose 112 H
Calcium 8.9
Total Bilirubin 1.0
AST 78 H
ALT 282 H
Alkaline Phosphatase 68
Vital Signs:
Vital Signs
Temp Pulse Resp BP Pulse Ox
97.7 F 78 18 146/90 97
10/16/23 08:00 10/16/23 08:00 10/16/23 08:00 10/16/23 08:00 10/16/23 08:00
I&O
10/15/23 10/16/23 10/17/23
06:59 06:59 06:59
Intake Total 1680 / 1680 820 / 820
Output Total 1950 / 1950
Balance -270 / -270 820 / 820
Physical Exam
-
General: Well Developed, No Apparent Distress and Morbidly Obese
HEENT: Normocephalic, Atraumatic and Moist Mucous Membranes
Respiratory: Clear to Auscultation
Cardiac: Regular Rhythm and S1/S2; Negative Murmur, Rub or Gallop
GI: Soft, Nondistended, Normal Bowel Sounds, Tender (at incision site. ) and Other (insicion site noted without erythema. ); Negative Organomegaly
Rectal: Deferred by Provider
Musculoskeletal: No Clubbing, No Cyanosis and No Edema
Skin: Negative Rash
Neuro: Awake, Alert, Oriented, AO x 3, No Motor Deficits and Nonfocal/Grossly Intact
Psych: Calm
--- NOTE | 2023-10-16 11:01 | W.DCSUMMARY ---
Discharge Summary
Discharge Data
Date of Admission: 10/14/23
Date of Discharge: 10/16/23
-
Pending Results: No
Hospital Course
38-year-old male past medical history of morbid obesity excess calories, diabetes is presenting from home with severe right upper quadrant abdominal pain. Patient had abnormal LFTs admission patient underwent abdominal ultrasound with concern for
acute calculus cholecystitis. General surgery was consulted. Patient was kept n.p.o. and IV antibiotics were started. Patient underwent robotic assisted laparoscopic cholecystectomy with cholangiogram. Postop patient did well. IV fluid was
discontinued. Per general surgery no further antibiotics on discharge. Patient was tolerating diet and having bowel movements. Recommend to hold Wegovy until outpatient general surgery and PCP evaluation. Patient for discharge home with
outpatient general surgery postop follow-up.
Discharge Plan
-
Patient Disposition: Home (Routine Discharge)
Discharge Diagnosis/Procedures: Acute cholecystitis. Robotic cholecystectomy with cholangiogram.
Condition: Good
Diet: No restrictions
Activity: No strenuous activity
Driving Restrictions: As prior to admission
Bathing Restrictions: OK to Shower
Activity Restrictions/Additional Instructions:
Instructions following robotic cholecystectomy
Please call [phone] if you have any questions or concerns after your surgery.
Wound Care:
Your incisions are covered with skin glue which will come off on its own in 5-10 days.
It is ok to shower the day after your surgery. Do not scrub the incisions, let soap and water wash over them and pat dry.
� Bruising around your incisions is normal.
� Using ice packs will help minimize this swelling.
� No swimming or soaking incisions for 1 week.
� Your stitches will dissolve and do not need to be removed.
Urinary retention:
If you are unable to urinate 6-8 hours after your surgery, please call [phone] to discuss further management.
Activity:
No heavy lifting more than 15 pounds for the next 3 weeks, then you may gradually lift heavier objects as tolerated by discomfort. Otherwise activity as tolerated by your comfort level.
Pain Management:
Use Tylenol, ibuprofen and ice packs to treat your pain.
� You may take 650 milligrams of Tylenol (Max 3 grams per day) every 6 hours, and 600 mg of ibuprofen also every 6 hours. (you can alternate them every 3 hours)
� You may use an ice pack to your incision as needed.
� If you still have pain not controlled by these measures, take your prescription pain medication as prescribed.
Medications:
You may resume your home medications.
Bowel Medications:
Prescription pain medication can make you constipated. If you take this medication, also take colace 100 mg twice daily (this is over the counter). If this is not sufficient, you may take Miralax (polyethylene glycol) to help move your bowels.
Diet:
After your procedure, there are no dietary restrictions. However, you may notice some loose stools with fatty meals for up to 4 weeks after surgery. If this is the case, please adjust to a low fat diet as needed.
Driving restrictions:
No driving if you are taking prescription pain medication or if you think your normal reaction time and attentiveness has been slowed by your surgery.
Things to Look out for:
Worsening Abdominal pain, fever, jaundice, redness or drainage from incision
Call Doctor for:
Please call if you notice worsening redness or drainage from incision(s) lasting longer than 5 days after your surgery, any foul-smelling drainage from the incision, pain not controlled by pain medications, persistent nausea and vomiting, or for any
fevers greater than 101.3 F. The number for questions/concerns is [phone]
Follow-up:
A follow-up appointment will be scheduled with your surgeon in 3-4 weeks. Please call prior to your appointment if you have any questions or concerns. [phone]
Referrals:
Umair Carrillo DO [Family Provider] - in less than 1 week
Brennen Hamilton MD [Active] -
Prescriptions:
New
tramadol 50 mg tablet
25 mg PO Q6HPRN PRN (Reason: severe pain/breakthrough pain) Qty: 8 0RF
Continued
multivitamin Tablet
1 tab PO DAILY
cetirizine 10 mg Tablet
10 mg PO DAILY
Qvar RediHaler 80 mcg/actuation HFA aerosol breath activated
2 inh INHALATION DAILY
cinnamon bark [Cinnamon] 500 mg Capsule
500 mg PO DAILY
Tumeric
1 dose PO DAILY
Changed
naproxen 500 mg tablet
500 mg PO BID PRN (Reason: back pain) Qty: 0 0RF
Rx Instructions:
Take with food/meals
Held
Wegovy 0.25 mg/0.5 mL pen injector
0.25 mg SC MO
Hold Instructions: Resume on 10/28/23.
Discharge Orders:
Discharge Patient (As Directed); Ordered 10/16/23
Ordered By: Maximiliano Christian
Discharge Date and Time
Print Language: CHINESE
--- NOTE | 2023-10-16 11:06 | CM ---
Case management following for d/c planning
Pt for discharge
Has transport home
Plan - anticipate home no needs
[2023-10-16 11:39] LABS: Glucose - Point of Care 101 mg/dl (70-99)
== END 2023-10-16 15:00 | disposition home or self-care (01) | DRG 418 ==
LOC: 3 WEST ACU 02:48
PROVIDERS: Clinical Nurse Specialist Family Health; Surgery; ADMITTING PHYSICIAN Hospitalist; ATTENDING PHYSICIAN Hospitalist; CONSULT PHYSICIAN Surgery; EMERGENCY PHYSICIAN Emergency Medicine; FAMILY PHYSICIAN Family Medicine
PROC: 8E0W4CZ Robotic Assisted Procedure of Trunk Region, Percutaneous Endoscopic Approach (ICD-10-PCS; 2023-10-14)
PROC: BF502Z0 Other Imaging of Bile Ducts using Fluorescing Agent, Intraoperative (ICD-10-PCS; 2023-10-14)
PROC: 0FT44ZZ Resection of Gallbladder, Percutaneous Endoscopic Approach (ICD-10-PCS; 2023-10-14)
DX: K80.01 Calculus of gallbladder with acute cholecystitis with obstruction (principal); Z68.42 Body mass index [BMI] 45.0-49.9, adult; E66.01 Morbid (severe) obesity due to excess calories; E11.9 Type 2 diabetes mellitus without complications; Z79.84 Long term (current) use of oral hypoglycemic drugs
CPT/HCPCS: 88304; 74300; 76000; 76700; 80048; 80053; 81003; 82248; 82962; 83036; 83690; 84484; 85025; 85027; 85379; 93005; 96360; 99285